=== PATIENT | female | born 1950 | race Caucasian/White ===

== ENCOUNTER → 2016-07-13 | Outpatient (CLI) | payer OTHER ==
[~2016-07-13] MED LIST: ASPIRIN81 M2 PO; DULOXETINE HCL60 M1 PO; METOPROLOL SUCC25 MG PO; NEXIUM PO; OXYGEN; SPIRIVA18 MCG INH
--- NOTE | ~2016-07-13 | CT5 ---
[facility] A Service of [facility] RADIOLOGY TEXT RESULTS PATIENT: BEVERLEY BRITO LOCATION: [facility] : 50 UNIT #: [id number] AGE: [address]: Lucero Umana APRN SEX: F ORDER DR: [id number] [facility] [address] [place], [place] [address] [id number] O MR#: [id number] Acc #: [id number] NAME: BEVERLEY BRITO : 1950 SEX: F STUDY DATE/TIME: 07/13/2016 8:28 UNIT: [facility] ROOM: STUDY DESCRIPTION: CT Abdomen W Cont Attending Physician: Lucero Umana A.P.R.N. Referring Physician: Lucero Umana A.P.R.N. Ordering Physician: Lucero Umana A.P.R.N. Primary Care Physician: Lucero Umana A.P.R.N. MEDICAL IMAGING REPORT This report is preliminary unless electronic signature is present EXAM CT abdomen with contrast. INDICATION Mid abdominal pain mostly on the right side for the past 2 months. PROCEDURE Contrast-enhanced CT of the abdomen. This CT exam was performed with one or more of the following radiation dose reduction techniques: automatic exposure control, adjustment of mA and/or kV according to patient size, and iterative reconstruction. COMPARISON 03/05/2014 FINDINGS Visualized portions the left lung are clear. The patient is status post right pneumonectomy. Expected elevation of the right hemidiaphragm. ABDOMEN WITH CONTRAST: No liver or splenic mass. There are a few small cysts in the kidneys. Adrenal glands, pancreas are unremarkable. Previous cholecystectomy. Moderate sized hiatal hernia. Moderately large colonic stool burden. No aggressive appearing bone lesion. IMPRESSION 1. No acute findings in the abdomen. 2. Moderately large colonic stool burden. 3. Previous right pneumonectomy with expected elevation of the right hemidiaphragm. 4. Moderate-sized hiatal hernia. [facility] A Service of [facility] RADIOLOGY TEXT RESULTS PATIENT: BEVERLEY BRITO LOCATION: [facility] : 50 UNIT #: [id number] AGE: [address]: Lucero Umana APRN SEX: F ORDER DR: Dictated by... Jaiden Garcia M.D. THIS IS AN ELECTRONICALLY VERIFIED REPORT Jaiden Garcia M.D. at 07/14/2016 2:17 PM EED/shoaib TD: 07/13/2016 17:04 JOB #: [id number] MEDICAL IMAGING REPORT Page 1 of 1 COPY
[2016-07-13 13:42] LABS: POC - CREATININE 0.84 mg/dL (0.44-1.03); POC - GFR >60.0 mL/min (>60)
== END | disposition home or self-care (01) ==
LOC: CCAT 07:08
PROVIDERS: Nurse Practitioner
DX: R10.9 Unspecified abdominal pain (principal); D64.9 Anemia, unspecified; K44.9 Diaphragmatic hernia without obstruction or gangrene; Z98.890 Other specified postprocedural states
CPT/HCPCS: 74160; 82565; Q9967